=== PATIENT | male | born 1965 | race Caucasian/White ===

== ENCOUNTER 2018-11-19 13:45 | Day surgery (SDC) | payer BC ==
[~2018-11-19] VITALS: Ht 188 cm; Wt 98.9 kg
[2018-11-19 14:57] VITALS: BP 125/80; PULSE 65; TEMP 97.6
[2018-11-19] MEDS ORDERED: PRILOTC PO (15:36)
[2018-11-19 18:00] VITALS: BP 139/81; PULSE 54
--- NOTE | 2018-11-19 18:00 | NUR ---
returned to room from PACU per cart, asssited off cart and ambulated into bathroom, voided large amount blood colored urine, then into bed, assessment completed, see shift assessment for further info, denies needs at this time
[2018-11-19 18:15] VITALS: BP 147/82; PULSE 59
--- NOTE | 2018-11-19 18:15 | NUR ---
assisted up to bathroom to try to void, taking water and tolerates well
[2018-11-19 18:30] VITALS: BP 152/80; PULSE 50
[2018-11-19 18:45] VITALS: BP 147/87; PULSE 52
--- NOTE | 2018-11-19 18:48 | NUR ---
back to bed, and bedside shift report given to ZANDER Bauer
[2018-11-19 20:23] VITALS: BP 156/86; PULSE 63; TEMP 97.6
== END 2018-11-19 21:35 ==
LOC: SDCO 13:45 → SURG 17:55 → SDCO 21:35
DX: N20.1 Calculus of ureter (principal); Z82.49 Family history of ischemic heart disease and other diseases of the circulatory system; Z87.442 Personal history of urinary calculi
CPT/HCPCS: C1769; J0690; J1100; J1885; J2405; J2704; J3010; Q9967